=== PATIENT | female | born 1945 | race Caucasian/White ===

== ENCOUNTER 2020-08-08 10:45 | Outpatient (CLI) | payer MEDICARE, SELFPAY ==
--- NOTE | 2020-08-08 11:03 | XRR_ITS ---
PROCEDURE INFORMATION: Exam: XR Lumbosacral Spine, 4 or 5 Views Exam date and time: 08/08/2020 11:08 AM Age: 75 years old Clinical indication: Prior surgery; Surgery type: Hernia; Patient HX: Low back pain and down legs, pain after shoveling snow; Additional info: Radicular low back pain TECHNIQUE: Imaging protocol: XR of the lumbosacral spine, 4 or 5 views. COMPARISON: No relevant prior studies available. FINDINGS: Bones/joints: Trace dextrocurvature of the lumbar spine noted. The normal lumbar lordosis is maintained, with 7 mm/grade 1 anterolisthesis of L4, which is unchanged in flexion and extension views. Vertebral body heights are well maintained. There is multilevel discogenic degenerative changes, manifested by intervertebral disc space narrowing, endplate osteophytes and facet joint arthrosis. Aortic atherosclerotic calcifications seen. Soft tissues: Unremarkable. XR/XR lumbar spine min 4V [id number] IMPRESSION: Degenerative changes of the lumbar spine, with grade 1 anterolisthesis of L4. No evidence of dynamic instability.
== END 2020-08-08 10:46 | disposition home or self-care (01) ==
PROVIDERS: PCP Family Medicine; Visit Provider Family Medicine
DX: M54.16 Radiculopathy, lumbar region (principal)
CPT/HCPCS: 72110

== ENCOUNTER 2020-08-26 10:06 | Outpatient (CLI) | payer MEDICARE, SELFPAY ==
--- NOTE | 2020-08-26 | MR_ITS ---
WS: [id number] MRI LUMBAR SPINE NONCONTRAST HISTORY: RADICULAR LOW BACK PAIN COMPARISON: None available. TECHNIQUE: Sagittal and axial multisequence imaging is submitted. C3 anterolisthesis by 3 mm. Facet joint arthritis and straightening of the normal cervical lordosis. At T5-6 there is a central disc protrusion contacting the ventral cord. 4 lumbar type vertebral bodies. L5 is sacralized. L3 anterolisthesis by 5 mm. No marrow edema or frac tures. Mild disc desiccation throughout the lumbar spine. Conus terminates normally at L1. T12-L1: LEFT foraminal stenosis. There is increased soft tissue in the LEFT foramen suggesting is a d isc protrusion encroaching upon the T12 nerve root. L1-L2: Mild annular disc bulging with moderate to severe facet joint arthritis, LEFT greater than RIG HT. Moderate bilateral foraminal stenosis but no central stenosis. L2-L3: Diffuse annular disc bulging with ligamentum flavum disease and facet arthritis. Very mild mohsen rowing of the central canal with mild to moderate bilateral foraminal stenosis. L3-L4: Annular disc bulging with fluid in the facet joints and moderate ligamentum flavum hypertrophy . Mild central and bilateral lateral recess stenosis and mild foraminal stenosis. L4-L5: Mild annular disc bulging with facet and ligamentum flavum arthritis. No central stenosis. Mil d RIGHT foraminal stenosis due to disc and osteophyte disease. L5-S1: Rudimentary disc. L5 appears somewhat sacralized. Paravertebral soft tissues are normal. There is a small cyst from the lower pole of the LEFT kidney. MR/MR lumbar spine wo con* [id number] IMPRESSION: 1. 4 lumbar type vertebral bodies. L5 vertebral body appears sacralized. 2. L3 anterolisthesis by 5 mm. 3. Moderate LEFT foraminal stenosis at T12-L1 with a disc protrusion encroachi ng upon the T12 nerve root. 4. Moderate bilateral foraminal stenosis at L1-2. 5. Mild to moderate bilateral foraminal stenosis and mild central stenosis at L2-3. 6. Mild central, bilateral lateral recess and foraminal stenosis at L3-4. 7. Mild RIGHT foraminal stenosis at L4-5.
== END 2020-08-26 10:07 | disposition home or self-care (01) ==
PROVIDERS: PCP Family Medicine; Visit Provider Family Medicine
DX: M54.16 Radiculopathy, lumbar region (principal); M48.061 Spinal stenosis, lumbar region without neurogenic claudication; M48.07 Spinal stenosis, lumbosacral region
CPT/HCPCS: 72148

== ENCOUNTER 2020-11-04 10:33 | Outpatient (RCR) | payer MEDICARE, SELFPAY | END 2020-11-17 23:59 | disposition home or self-care (01) | LOC: SPT 10:33 | PROVIDERS: PCP Family Medicine; Referring Provider Family Medicine; Visit Provider Family Medicine | DX: L40.52 Psoriatic arthritis mutilans (principal) | CPT/HCPCS: 97110; 97161 ==

== ENCOUNTER 2020-11-18 06:00 | Outpatient (RCR) | payer MEDICARE, SELFPAY | END 2020-12-17 23:59 | disposition home or self-care (01) | LOC: SPT 06:00 | PROVIDERS: PCP Family Medicine; Referring Provider Family Medicine; Visit Provider Family Medicine | DX: L40.52 Psoriatic arthritis mutilans (principal) | CPT/HCPCS: 97110 ==

== ENCOUNTER 2020-12-18 06:00 | Outpatient (RCR) | payer MEDICARE, SELFPAY | END 2021-01-17 23:59 | disposition home or self-care (01) | LOC: SPT 06:00 | PROVIDERS: PCP Family Medicine; Referring Provider Family Medicine; Visit Provider Family Medicine | DX: L40.52 Psoriatic arthritis mutilans (principal) | CPT/HCPCS: 97110 ==

== ENCOUNTER → 2021-06-09 10:36 | Day surgery (SDC) | payer MEDICARE, SELFPAY ==
[2021-06-09 11:00] VITALS: BP 152/75; PULSE 89; RESP 18; TEMP 36.1; O2SAT 99
[2021-06-09] MEDS: iron sucrose 200 MG in sodium chloride 0.9% (100 ml) 100 ML 220 MG IV (11:04)
[2021-06-09 11:05] VITALS: BMI 25.8
== END ==
PROVIDERS: PCP Family Medicine; Visit Provider Family Medicine
DX: E61.1 Iron deficiency (principal)
CPT/HCPCS: 96365; J1756

== ENCOUNTER → 2021-06-16 10:42 | Day surgery (SDC) | payer MEDICARE, SELFPAY ==
[2021-06-16 11:05] VITALS: BP 161/79; PULSE 90; RESP 20; TEMP 35.9; O2SAT 98
--- NOTE | 2021-06-16 11:14 | PC.NURSE ---
Pt is unsure what meds she is on
[2021-06-16] MEDS: iron sucrose 200 MG in sodium chloride 0.9% (100 ml) 100 ML 220 MG IV (11:30)
== END ==
PROVIDERS: PCP Family Medicine; Visit Provider Family Medicine
DX: E61.1 Iron deficiency (principal)
CPT/HCPCS: 96365; J1756

== ENCOUNTER → 2021-06-23 10:42 | Day surgery (SDC) | payer MEDICARE, SELFPAY ==
[2021-06-23] MEDS: iron sucrose 200 MG in sodium chloride 0.9% (100 ml) 100 ML 220 MG IV (11:22)
[2021-06-23 11:26] VITALS: BP 156/74; PULSE 76; RESP 18; TEMP 36.4; O2SAT 99
== END ==
LOC: GILAB 10:44
PROVIDERS: PCP Family Medicine; Visit Provider Family Medicine
DX: E61.1 Iron deficiency (principal)
CPT/HCPCS: 96365; J1756

== ENCOUNTER → 2021-06-30 10:32 | Day surgery (SDC) | payer MEDICARE, SELFPAY ==
[2021-06-30] MEDS: iron sucrose 200 MG in sodium chloride 0.9% (100 ml) 100 ML 220 MG IV (11:05)
[2021-06-30 11:06] VITALS: BP 130/66; PULSE 62; RESP 18; TEMP 36; O2SAT 95
== END ==
LOC: GILAB 10:34
PROVIDERS: PCP Family Medicine; Visit Provider Family Medicine
DX: E61.1 Iron deficiency (principal)
CPT/HCPCS: 96365; J1756

== ENCOUNTER → 2021-07-07 10:40 | Day surgery (SDC) | payer MEDICARE, SELFPAY ==
[2021-07-07 07:44] VITALS: BMI 25.3
[2021-07-07] MEDS: iron sucrose 200 MG in sodium chloride 0.9% (100 ml) 100 ML 220 MG IV (11:00)
[2021-07-07 11:03] VITALS: BP 165/72; PULSE 73; RESP 18; TEMP 36.5; O2SAT 94
== END ==
PROVIDERS: PCP Family Medicine; Visit Provider Family Medicine
DX: E61.1 Iron deficiency (principal)
CPT/HCPCS: 96365; J1756

== ENCOUNTER → 2021-12-04 09:30 | Day surgery (SDC) | payer MEDICARE, SELFPAY | PROVIDERS: PCP Family Medicine; Visit Provider Obstetrics & Gynecology | DX: Z01.818 Encounter for other preprocedural examination (principal) | CPT/HCPCS: 93005 ==

== ENCOUNTER → 2021-12-07 09:20 | Outpatient (BNVA) | payer MEDICARE, SELFPAY | PROVIDERS: PCP Family Medicine; Visit Provider Obstetrics & Gynecology | DX: Z01.812 Encounter for preprocedural laboratory examination (principal); N81.10 Cystocele, unspecified | CPT/HCPCS: 80053; 81000; 85025; 86850; 86900 ==

== ENCOUNTER 2021-12-10 15:03 | Observation (INO) | payer MEDICARE, SELFPAY ==
[2021-12-04 09:23] VITALS: BMI 25.4
--- NOTE | 2021-12-04 09:36 | ECG_ITS ---
[facility] Test Date: 2021-12-04 Pat Name: Selma Mustafa Department: Room: Gender: Female English Teacher: : 1945 Requested By: Justin Silvestre Order Number: [id number] Emily MD: Bao Polk M.D. Measurements Intervals [place] Rate: 56 P: 39 CT: 151 QRS: -50 QRSD: 190 T: 116 QT: 493 QTc: 477 Interpretive Statements SINUS BRADYCARDIA LEFT AXIS DEVIATION [QRS AXIS < -30] LEFT BUNDLE BRANCH BLOCK [120+ ms QRS DURATION, 80+ ms Q/S IN V1/V2, 85+ ms R IN I/aVL/V5/V6] No previous ECG available for comparison Electronically Signed On 12-04-2021 20:47:22 CDT by Bao Polk M.D. [id number]
--- NOTE | 2021-12-04 12:57 | ANES.PREANE2 ---
Pre-Anesthetic Assessment Height/Weight: Height 1.68 m Weight 71.668 kg Operation Date: 12/10/21 12:00 Proposed Procedures p Anterior colporrhaphy 92038, single incision midurethral sling 53732/N81.10(Not Applicable) - Ronny Bird MD s Sling Single Incision Midurethral Sling(Not Applicable) - Ronny Bird MD Familial anesthetic complications: none Was Beta Reji taken within 24 hours: N/A Was Clonidine taken within 24 hours: N/A Social No alcohol and No tobacco Exam alert, oriented x 3, clear to auscultation bilaterally and regular rate & rhythm Airway Submandibular: within normal limits Cervical ROM: within normal limits Mallampati: Class II Dentition: false Pulmonary Chronic Obstructive Pulmonary Disease and Sleep Apnea CV/HEM Congestive Heart Failure (EF 30%--reportedly) and Hypertension Good functional status Anesthetic Plan ASA status: 3 Anesthesia: General Medications/Allergies Home Medications Medication Instructions Recorded Confirmed Last Taken Type acetaminophen 160 mg tablet 325 mg PO Q6H PRN 06/09/21 12/04/21 07/06/21 History aspirin 81 mg tablet 81 mg PO DAILY 06/09/21 12/04/21 07/06/21 History furosemide 20 mg tablet 40 mg PO QAM 06/09/21 12/04/21 07/06/21 History iron 325 mg PO DAILY 06/09/21 12/04/21 07/06/21 History montelukast 10 mg tablet 10 mg PO DAILY 06/09/21 12/04/21 07/06/21 History (Singulair) tramadol 50 mg PO TID PRN 06/09/21 12/04/21 07/06/21 History albuterol sulfate 0.63 mg/3 mL 2.5 mg INHALATION DAILY 06/16/21 12/04/21 07/06/21 History solution for nebulization budesonide 160 mcg-glycopyr 9 1 inh INHALATION DAILY 06/16/21 12/04/21 07/06/21 History mcg-formot 4.8 mcg/actuation HFA inhaler (Breztri Aerosphere) cetirizine 10 mg tablet 10 mg PO DAILY 06/23/21 12/04/21 07/06/21 History cholecalciferol (vitamin D3) 125 125 mcg PO DAILY 06/23/21 12/04/21 07/06/21 History mcg (5,000 unit) tablet (Vitamin D3) doxepin 10 mg capsule 10 mg PO DAILY 06/23/21 12/04/21 07/06/21 History potassium 20 mg chewable tablet 10 mg PO DAILY 12/04/21 12/04/21 Unknown History Allergies Allergy/AdvReac Type Severity Reaction Status Date / Time alendronate sodium Allergy Unknown Verified 10/12/21 09:59 [From Fosamax] codeine Allergy Unknown Verified 10/12/21 09:59 cyclobenzaprine Allergy Unknown Verified 10/12/21 09:59 naproxen Allergy Unknown Verified 10/12/21 09:59 Penicillins Allergy ALGY-Rash Verified 10/12/21 09:59 ranitidine Allergy Unknown Verified 10/12/21 09:59 Sulfa (Sulfonamide Allergy Unknown Verified 10/12/21 09:59 Antibiotics) telmisartan [From Micardis] Allergy ALGY-Wheezi Verified 10/12/21 09:59 ng venlafaxine [From Effexor] Allergy Unknown Verified 10/12/21 09:59 PFSH Anesthesia Family History (Updated 10/12/21 @ 10:05 by Regla Antunez RN) Son Diabetes Mother Hyperlipidemia Hypertension Stroke Thyroid condition Ovarian cancer, Onset Age: 86 Daughter Thyroid condition Denies family history of Colon cancer Clotting disorder Heart disease Breast cancer Anesthesia complication Bleeding disorder Uterine cancer Data Anesthesia Cardiac Studies: No Data to Display
[2021-12-10] VITALS (25 sets, daily range): BP systolic 92–157; BP diastolic 49–90; PULSE 56–98; RESP 12–20; TEMP 36.4–36.6; O2SAT 89–98; BMI 25.4
--- NOTE | 2021-12-10 11:15 | P.ANESUD_ITS ---
Pre-Anesthetic Update Pre-Anesthetic Assessment: Date of Surgery/Procedure: 12/10/21 Preop Frida gnosis: Cystocele stage III, Proposed Procedure: Operation Date: 12/10/21 12:00 Proposed Procedures p Anterior colporrhaphy 32597, single incision midurethral sling 69341/N81.10(Not Applicable) - Ronny Bird MD s Sling Single Incision Midurethral Sling(Not Applicable) - Ronny Bird MD Any changes to Pre-Anesthetic Assessment?: No Last Intake: Intake Last Liquid Date 12/09/21 Last Liquid Time 23:00 Last Solid Date 12/09/21 Last Solid Time 21:00 Vitals: Oxygen Delivery Me thod 12/10/21 10:58 Exam: Pre-Anes Outpt Exam: alert, oriented x 3, clear to auscultation bilaterally and regular rate & rhythm Cardiac Studies: No Data to Display
[2021-12-10] MEDS: sodium chloride 0.9% 1,000 ML 30 ML IV (11:17)
[2021-12-10] MEDS: enoxaparin 30 mg/0.3 mL Syringe SUBCUT (11:21)
[2021-12-10] MEDS: scopolamine 1.5 Patch 1 PATCH TRANSDERMA (11:21)
[2021-12-10 12:07] LABS: Anion Gap 12.5 (5-19); Blood Urea Nitrogen 14 mg/dL (8-23); Calcium 9.9 mg/dL (8.5-10.5); Carbon Dioxide 30 mmol/L (22-29); Chloride 102 mmol/L (98-107); Glucose 92 mg/dL (65-115); Osmolality Calculated 292 mOsm/kg (285-295); Potassium 3.5 mmol/L (3.5-5.1); Sodium 141 mmol/L (136-145)
--- NOTE | 2021-12-10 12:56 | W.PM.OPSUD ---
Surgery/Procedure H&P Update DATE OF PROCEDURE: December 10, 2021 DATE H&P PERFORMED: 12/07/21 H&P UPDATE INFORMATION: I have reviewed H&P completed within last 30 days, I have examined patient prior to procedure and Changes to prior documentation as noted here PREOP DIAGNOSIS: Cystocele stage III, PLANNED PROCEDURE: Operation Date: 12/10/21 12:00 Proposed Procedures p Anterior colporrhaphy 49812, single incision midurethral sling 29747/N81.10(Not Applicable) - Ronny Bird MD s Sling Single Incision Midurethral Sling(Not Applicable) - Ronny Bird MD
[2021-12-10] MEDS: vancomycin 1,000 MG in sodium chloride 0.9% 250 ML 250 MG IV (13:01)
[2021-12-10] MEDS: estrogens Conjugated Cream 30 gm 1 APPLIC VAGINAL (14:04)
--- NOTE | 2021-12-10 14:26 | PM.OP ---
Operative Report Date of procedure: December 10, 2021 Pre-op diagnosis: Preop Diagnosis Cystocele stage III, Post-op diagnosis: Same as above Procedure done: Anterior colporrhaphy augmented with allograft Single incision mid urethral sling Implants: ALTIS single incision sling Surgeon: Ronny Bird MD Estimated blood loss (mL): 25 IV fluids (mL): 1,300 Urine output (mL): 700 Complications: None Findings: Cystocele stage III. Procedure: After obtaining informed consent, the patient was taken to the operating room and placed in the supine position, given general anesthesia, and prepped and draped in sterile fashion. The abdomen, vulva and vagina were prepped and draped in a sterile manner. A time out procedure was performed. The anterior vaginal mucosa beneath the midurethra was infiltrated with 0.5% Marcaine with epinephrine. A vertical midline incision was made beneath the midurethra, nearly 1.5 cm length. Careful submucosal dissection was performed bilaterally up to the interior portion of the inferior pubic ramus. The insertion of adductor longus tendon on the patient?s pubic ramus was identified as reference land shailesh. Palpated the notch along the internal edge of ischiopubic ramus where the adductor longus tendon and the inferior pubic ramus meet. The Altis single incision sling (SIS) was selected. Then the needle of the SIS inserted aiming at the location of this notch. One of the integrated self-fixating tips place onto the needle by sliding it over the end of the needle. The needle/sling assembly was inserted toward the location of identified reference notch making sure that the flat of the handle is perpendicular to the desired path. The needle was tracked along the posterior surface of the ischiopubic ramus until the midline shailesh on the mesh is approximately at the midline position under the urethra. The needle was removed and the same was repeated on the contralateral side until the appropriate sling tension under the urethra was achieved ensuring that the mesh lays flat. The needle was removed and vaginal incision was closed in a running interlocking fashion with 2-0 Vicryl. The vaginal mucosa was scored in the midline with the Bovie approximately 1 cm medial to the urethral meatus to 1 cm distal to the vaginal cuff. This vaginal mucosa was then undermined and then incised in the midline with the Metzenbaum scissors. The lateral aspects of the vaginal mucosa were then grasped with the Allis clamps and the vaginal mucosa was then dissected off the underlying fascia with the Metzenbaum scissors. Again, there was noted to be quite a bit of oozing at the incision, which was controlled with cautery. After adequate dissection was performed, bilaterally. Coloplast Dermagraft was modified at time of application to fit spacea, 4 x 3 cm piece . Coloplast Dermagraft placed in front of cystocele ready to be implanted with the Basement Membrane facing the vagina mucosa. Suture is placed at distal end of graft and placed towards vaginal cuff. Final suture is placed on proximal portion of the graft to complete the placement overlying the bladder. Then Interrupted vertical mattress sutures of 0 Vicryl were used to elevate the cystocele superiorly. The excessive vaginal mucosa was then trimmed with the Metzenbaum scissors and the vaginal mucosa was then reapproximated in the running interlocking fashion with 2-0 Vicryl. Then the Odonnell catheter was removed and cystoscope was inserted. The bladder was filled with sterile water. Complete evaluation of the bladder mucosa was performed noting no lacerations, dimpling, tears, bleeding of the mucosa or muscular layers. Both ureteral orifices were identified. Prompt excretion of urine from both ureteral orifices was noted. Cystoscope was withdrawn. The Odonnell catheter was replaced. Excellent hemostasis was obtained. A vaginal pack is placed overnight as postoperative support for the vaginal tissues after graft placement and closure of vaginal incisions. Sponge, lap, needle, and instrument counts were correct times three. The patient was taken to the recovery room, awake and in stable condition.
[2021-12-10] MEDS: fentaNYL 50 mcg/mL INJ 2mL IVP (15:22)
--- NOTE | 2021-12-10 15:43 | ANE.PACU2 ---
Inpatient post-anesthesia follow up: Airway intact: Yes Vital signs: Temperature 97.5 F Pulse Rate 70 Respiratory Rate 16 Blood Pressure 147/63 Pulse Oximetry 94 Oxygen Delivery Me thod Room Air Oxygen Flow Rate Fraction of Inspir ed Oxygen Hydration adequate: Yes Nausea and vomiting: No Pain level: 3 Mental status: Baseline
--- NOTE | 2021-12-10 16:32 | PC.NURSE ---
Hearing Aid This nurse gave one hearing aid to Mrs Mustafa, which she placed in her right ear and confirmed that the hearing aid was in working order.
[2021-12-10] MEDS: docusate sodium 100 mg Capsule PO (16:51)
[2021-12-10] MEDS: ketorolac 30 mg/mL INJ IVP ×2 (16:51→20:49)
[2021-12-10] MEDS: HYDROcodone-acetaminophen 5-325 mg Tablet PO (16:51)
[2021-12-10] MEDS: dextrose 5%-lactated ringers 1,000 ML 125 ML IV (16:53)
[2021-12-11] MEDS: dextrose 5%-lactated ringers 1,000 ML 125 ML IV ×2 (01:03→12:04)
[2021-12-11] MEDS: HYDROcodone-acetaminophen 5-325 mg Tablet PO ×3 (01:04→19:03)
[2021-12-11] MEDS: ketorolac 30 mg/mL INJ IVP ×2 (03:10→08:36)
[2021-12-11 04:33] VITALS: BP 122/64; PULSE 445; RESP 16; TEMP 36.4; O2SAT 95
[2021-12-11 08:00] VITALS: BP 137/58; PULSE 58; RESP 16; TEMP 36.6; O2SAT 96
[2021-12-11] MEDS: docusate sodium 100 mg Capsule PO ×2 (08:37→18:13)
[2021-12-11 08:56] LABS: Hematocrit 34.8 % (37.0-47.0); Hemoglobin 11.5 g/dL (11.5-15.3); Mean Corpuscular Hemoglobin 30.7 pg (28.0-34.0); Mean Corpuscular Volume 92.8 fl (81-99); Mean Platelet Volume 9.6 fL (7.4-10.4); Platelet Count 283 10^3/cmm (130-400); Red Blood Count 3.75 10^6/uL (4.1-5.3); Red Cell Distribution Width 13.4 % (12.1-15.1)
--- NOTE | 2021-12-11 11:05 | PC.CHAP ---
Pastoral Care Encounter/Spiritual Assessment Type of Contact [] Declined gas leak inspector helper visit [] Patient/Family/Request visit [] Outpatient visit [] Follow-up visit [] Physician referral [] Code/Alert [x] Routine visit [] Staff referral [] Actively dying [] Patient sleeping [] Family support [] [] Out of room [] Palliative care [] [x] Receiving care in room [] Pre-surgical visit [] Trauma [] Long length of stay [] ICU visit [] Other: Relational/Emotional Strength [] Patient feels connected with others/family/visitors/staff [] Distress [] Loneliness/isolation [] Abandonment Spirituality of Patient [] Person of Penny [] Attends Buddhism of their Penny [] Believes in Prayer [] Reads Bible or Confucianism materials [] There are Spiritual issues to be addressed Book Solicitor Interventions [] Prayer [] Active listening [] Non-anxious presence [] Spiritual/emotional support [] Crisis/trauma care [] Spiritual counseling [] Bereavement support [] Provided bereavement packet [] Provided Bible/devotional materials [] Provided toy/stuffed animal, coloring book to patient or family member [] Provided Communion [] Anointing/[place] [] Salvation [] Completed spiritual assessment [] Other: Impact on Illness or Injury [] Angry [] Fearful [] Anxious [] Often cries [] Exhaustion [] Unable to work [] Unable to attend lutheran [] Unable to walk/stand [] Unable to read [] Unable to drive [] Unable to eat/drink [] Unable to sleep [] Unable to be with family [] Patient intubated [] Other: Summary Time spent with patient
[2021-12-11 12:00] VITALS: BP 129/69; PULSE 53; RESP 16; TEMP 37.3; O2SAT 98
[2021-12-11] MEDS: ibuprofen 800 mg tablet PO (14:43)
[2021-12-11 16:00] VITALS: BP 151/62; PULSE 56; RESP 16; TEMP 36.7; O2SAT 95
--- NOTE | 2021-12-11 17:10 | PM.OBGYDC ---
Discharge Providers DATA WAREHOUSE CONSULTANT Date of Admission: 12/10/21 15:03 Date of Discharge: 12/11/21 Attending Provider at Admission: Ronny Bird MD Attending Provider at Discharge: Ronny Bird MD Primary DATA WAREHOUSE CONSULTANT: Ronny Bird MD Primary Care Provider: Destin Ontiveros MD Hospital Course Hospital Course Mrs. Mustafa admitted for a planned anterior colporrhaphy and single incision mid urethral sling. Procedures were performed without complications. She is postoperative day 1. Afebrile and hemodynamically stable. Tolerating diet well. Ambulating without difficulty. Physical Exam Narrative: GA: Alert and oriented ?3. HEENT: WNL. Heart: Regular rate and rhythm. Lungs: Clear to auscultation bilaterally. Abdomen: Bowel sounds present,minimal tenderness DE[employer]MENT [employer]:spotting bleeding. Extremities: No edema, no cyanosis, no calves pain. Urinary Catheter Management: Odonnell: Cath Placed During This Visit: yes Reason for Continuing Indwelling Catheter: Assist Healing of Perineal & Sacral Wounds- Incontinent Patients Urinary Catheter Date of Insertion: 12/10/21 Urinary Catheter Time of Insertion: 13:24 History History History 4 Term 4 Miscarriages/Ectopic 0 0 Living Children 4 Discharge Data Studies Completed and Pending Pending at discharge Category Date Time Status ES surgery / GI images Routine Exams 12/10/21 11:50 Taken Laboratory Results WBC 9.0 10^3/uL (4.0-10.0) 12/11/21 08:47 RBC 3.75 10^6/uL (4.1-5.3) L 12/11/21 08:47 Hgb 11.5 g/dL (11.5-15.3) 12/11/21 08:47 Hct 34.8 % (37.0-47.0) L 12/11/21 08:47 MCV 92.8 fl (81-99) 12/11/21 08:47 MCH 30.7 pg (28.0-34.0) 12/11/21 08:47 MCHC 33.0 g/dL (30.0-36.0) 12/11/21 08:47 RDW 13.4 % (12.1-15.1) 12/11/21 08:47 Plt Count 283 10^3/cmm (130-400) 12/11/21 08:47 MPV 9.6 fL (7.4-10.4) 12/11/21 08:47 Sodium 141 mmol/L (136-145) 12/10/21 11:39 Potassium 3.5 mmol/L (3.5-5.1) 12/10/21 11:39 Chloride 102 mmol/L (98-107) 12/10/21 11:39 Carbon Dioxide 30 mmol/L (22-29) H 12/10/21 11:39 Anion Gap 12.5 (5-19) 12/10/21 11:39 BUN 14 mg/dL (8-23) 12/10/21 11:39 Creatinine 0.7 mg/dL (0.5-0.9) 12/10/21 11:39 GFR Calculation Not Reportable 12/10/21 11:39 Glucose 92 mg/dL (65-115) 12/10/21 11:39 Calculated Osmolality 292 mOsm/kg (285-295) 12/10/21 11:39 Calcium 9.9 mg/dL (8.5-10.5) 12/10/21 11:39 Vitals Last Vital Signs Temp 98.1 F 12/11/21 16:00 Pulse 56 L 12/11/21 16:00 Resp 16 12/11/21 16:00 BP 151/62 12/11/21 16:00 Pulse Ox 95 12/11/21 16:00 Discharge Plan Discharge Patient Disposition: Home Condition: Stable Prescriptions: New tramadol 100 mg tablet 100 mg PO DAILY PRN (Reason: pain) Qty: 14 0RF Rx Instructions: The patient refers she had taken tramadol without complications or reactions. acetaminophen 325 mg capsule 325 mg PO Q4H PRN (Reason: fever or pain) Qty: 60 0RF Continued acetaminophen 160 mg Tablet 325 mg PO Q6H PRN (Reason: Pain) 0RF montelukast [Singulair] 10 mg Tablet 10 mg PO DAILY 0RF aspirin 81 mg Tablet 81 mg PO DAILY 0RF furosemide 20 mg Tablet 40 mg PO QAM 0RF iron 325 mg PO DAILY 0RF tramadol 50 mg PO TID PRN (Reason: Pain) 0RF Breztri Aerosphere 160-9-4.8 mcg/actuation Hfa Aerosol Inhaler 1 inh INHALATION DAILY 0RF albuterol sulfate 0.63 mg/3 mL solution for nebulization 2.5 mg inhalation DAILY PRN (Reason: Shortness Of Breath) 0RF cetirizine 10 mg Tablet 10 mg PO DAILY 0RF doxepin 10 mg Capsule 10 mg PO DAILY 0RF cholecalciferol (vitamin D3) [Vitamin D3] 125 mcg (5,000 unit) Tablet 125 mcg PO DAILY 0RF potassium 20 mg Tablet,Chewable 10 mg PO DAILY 0RF Discharge Orders: Discharge Order (Routine); Ordered 12/11/21 Ordered By: Ronny Bird Other Ambulatory Orders: DME: Walker (Order) Location: None Selected Ordered By: Ronny Bird Discharge Diet: Usual diet Discharge Activity: Limit activity as instructed Patient Instructions: Opioid Safety, Bladder Sling for Women (GEN), Anterior Vaginal Repair (GEN) Activity Restrictions/Additional Instructions: 1. Please call [facility] on next working day to make your post-operative appointment in 2 weeks. 2. Please stay home until you come back to the clinic on first post-operative check up. 3. Please follow instructions on your medications CAREFULLY. 4. If you have abdominal incision, do not cover it unless dressing is necessary because of drainage. OK to shower, but avoid bath. Leave steri-strips until they fall off. If they are still on one week after surgery, you may remove them. 5. If you had vaginal surgery or vaginal repair, Dr. Bird may instruct you to take SITZ bath. 6. Yellow, blood tinged odorous vaginal discharge is usually normal after hysterectomy or vaginal surgeries. 7. No sexual intercourse, tampons, or douches until you are completely released from the post-operative care. 8. Avoid constipation by eating right and maybe using some Metamucil or Milk of Magnesia. 9. All prescription refills are given during the working hours. Please do no wait till it runs out. Call the clinic at [phone] before your medication runs out. The clinic will get in touch with your doctor to prescribe medications if necessary. 10. Please remain within 40 mile radius from our hospital because emergencies do happen now and then during the post-operative period. 11. If you have stairs at home, take one step at a time slowly and minimize the number of trips. It helps to stay in one floor for the next few days. No lifting except what you can lift by one hand until you are released from the post-operative care. 12. Driving is discouraged until you are well healed. It may be 3-4 weeks before you feel strong enough to drive. You should be able to turn and look through the rear window without pain and you should be able to push the brake pedal very hard without pain before you drive. No fast rules, but SAFETY should be your primary concern. DO NOT drive if you are on sedating medications such as narcotics. 13. Call the clinic (during working hours) to make urgent appointment or go to the Emergency room, if any of the following occurs: i. Vaginal bleeding becomes heavy, more than a period. ii. Incision becomes red and sore, or drains pus. iii. Your temperature is over 100.4 or you have chill. iv. IV site becomes red and swollen (a little ``knot?? is usually OK) v. Persistent nausea and vomiting vi. Persistent constipation or diarrhea vii. Rash or allergic reaction to medications. Discharge Attestations DATA WAREHOUSE CONSULTANT Time Spent in Discharge Care*: greater than 30 min Coding Level of Care Code Acute Patient Manager for Evita Simms
[2021-12-11 19:27] VITALS: BP 151/62; PULSE 60; RESP 16; TEMP 36.7; O2SAT 95
--- NOTE | 2021-12-11 19:29 | PC.NURSE ---
IV removed intact. Patient is A&Ox3. Respirations even and non-labored on room air. Reviewed discharge with patient and daughter at bedside. Patient and daughter verbalized understanding of discharge instructions and the need to make a follow up appointment in 2 weeks. Patient voided 200 mls of urine and had 11mls of residual left in her bladder. Dr. Bird call and notified before discharge. Patient wheel cahired to private car.
== END 2021-12-11 07:33 | disposition home or self-care (01) ==
LOC: MEDSURG 15:03
PROVIDERS: Admitting Provider Obstetrics & Gynecology; PCP Family Medicine; Visit Provider Obstetrics & Gynecology
PROC: 0JQC0ZZ Repair Pelvic Region Subcutaneous Tissue and Fascia, Open Approach (ICD-10-PCS; CPT 57240; principal; 2021-12-10 12:00)
PROC: (CPT 57288; 2021-12-10 12:00)
PROC: 0TJB8ZZ Inspection of Bladder, Via Natural or Artificial Opening Endoscopic (ICD-10-PCS; CPT 52000; 2021-12-10 12:00)
DX: N81.10 Cystocele, unspecified (principal); J44.9 Chronic obstructive pulmonary disease, unspecified; G47.30 Sleep apnea, unspecified; I11.0 Hypertensive heart disease with heart failure; I50.9 Heart failure, unspecified; Z79.82 Long term (current) use of aspirin; Z82.49 Family history of ischemic heart disease and other diseases of the circulatory system; Z83.3 Family history of diabetes mellitus
CPT/HCPCS: 57240; 57288; 36415; 80048; 85027; C1713; C1762; G0378; J1100; J1200; J1650; J1885; J2370; J2405; J2704; J3010; J3370; J7030; J7050; Q9968

== ENCOUNTER 2024-06-21 09:40 | Outpatient (CLI) | payer MEDICARE, SELFPAY ==
--- NOTE | 2024-06-21 09:49 | MM_ITS ---
WS: [id number] BILATERAL SCREENING DIGITAL TOMOSYNTHESIS MAMMOGRAM WITH CAD HISTORY: SCREEN COMPARISON: 10/19/2016 Bilateral CC and MLO views with tomosynthesis and synthetic mammography submitted. Computer aided det ection analyzed. Breast composition: There are scattered areas of fibroglandular density. No suspicious masses, microc alcifications or architectural distortion. Benign coarse calcification LEFT breast. MM/MM scr BI tomosynthesis [id number] IMPRESSION: BI-RADS: 2 - Benign. FOLLOW UP: 1 Year Follow-up
== END 2024-06-21 09:41 | disposition home or self-care (01) ==
PROVIDERS: PCP Family Medicine; Visit Provider Family Medicine
DX: Z12.31 Encounter for screening mammogram for malignant neoplasm of breast (principal); R92.323 Mammographic fibroglandular density, bilateral breasts; R92.1 Mammographic calcification found on diagnostic imaging of breast
CPT/HCPCS: 77063; 77067